=== PATIENT | female | born 1995 | race American Indian/Alaskan Native ===

== ENCOUNTER 2018-03-28 15:08 | Emergency (ER) | payer MEDICAID ==
--- NOTE | 2018-03-28 16:33 | Emergency Department Report ---
HPI - General Time Seen by Provider: 03/28/18 15:23 - HPI HPI: 22-year-old Afro-L[place] female presents to the emergency department with a complaint of vaginal bleeding, some pelvic discomfort and concern for miscarriage. The patient is about 8 weeks that was verified through an urgent care with an ultrasound and based on her last menstrual cycle. With this she is with 2 previous miscarriages. The patient had some mild vaginal spotting earlier in the day. She went home from work to get a pad and then return to work. However, the patient says that she started having a large amount of vaginal bleeding at that point with increased discomfort and EMS was called. She does not have an HATCHERY LABORER. ED Past Medical Hx - Social History Smoking Status: Never Smoker Substance Use Type: None - Medications Home Medications: Home Medications Medication Instructions Recorded Confirmed Last Taken Type No Known Home Medications [No 03/28/18 03/28/18 Unknown History Reported Home Medications] ED Review of Systems ROS: Stated complaint: POSS MISCARRIAGE Other details as noted in HPI Comment: All other systems reviewed and negative Constitutional: denies: chills, fever Eyes: denies: eye pain, eye discharge, vision change ENT: denies: ear pain, throat pain Respiratory: denies: cough, shortness of breath, wheezing Cardiovascular: denies: chest pain, palpitations Gastrointestinal: denies: vomiting, diarrhea Genitourinary: other (vaginal bleeding, pelvic discomfort). denies: dysuria, discharge Musculoskeletal: denies: back pain, arthralgia Skin: denies: rash, lesions Neurological: denies: headache, weakness Physical Exam - Physical Exam Physical Exam: GENERAL: The patient is well-developed well-nourished. HEENT: Normocephalic. Atraumatic. Patient has moist mucous membranes. EYES: Extraocular motions are intact. Pupils are equal and reactive to light bilaterally. NECK: Supple. Trachea is midline. CHEST/LUNGS: Clear to auscultation. There is no respiratory distress noted. HEART/CARDIOVASCULAR: Regular. There is no tachycardia. There is no obvious murmur. ABDOMEN: Abdomen is soft, nontender. Patient has normal bowel sounds. There is no abdominal distention. SKIN: Skin is warm and dry. NEURO: The patient is awake, alert, and oriented. The patient is cooperative. The patient has no focal neurologic deficits. The patient has normal speech. MUSCULOSKELETAL: There is no tenderness or deformity. There is no limitation range of motion. There is no evidence of acute injury. : There is mild to moderate blood seen coming from the vagina. There is also some products of conception seen coming out of the vagina. ED Medical Decision Making - Lab Data Result diagrams: 03/28/18 16:55 03/28/18 16:55 - Radiology Data Radiology results: report reviewed PROCEDURE: Transvaginal obstetrical ultrasound. TECHNIQUE: Real-time transvaginal sonography of the uterus, placenta, amniotic fluid, adnexa, and fetus was performed with image documentation. Measurements were obtained to determine age/size. M-mode Doppler was used to document heartbeat. CPT 88294 HISTORY: suspected miscarriage, heavy vaginal bleeding COMPARISON: None that are applicable. FINDINGS: The uterine myometrium appears homogeneous. There are no focal uterine masses. The endometrial echo complex measures 1.6 centimeters in the fundal region. There are no signs of an intrauterine gestational sac. Neither ovary is identified. There is a small amount of fluid in the left adnexal region. IMPRESSION: No evidence of an intrauterine . Transcribed By: [facility] Dictated By: RODNEY LUJAN MD Electronically Authenticated By: RODNEY LUJAN MD Signed Date/Time: 03/28/18 193 - Medical Decision Making Patient presents after having a large amount of vaginal bleeding and some pelvic pain with concern for miscarriage. Shortly after arrival, some products of conception were seen coming out of the vagina including some tissue and sac. A transvaginal ultrasound was done that now shows no evidence of any intrauterine . Labs are unremarkable. Vital signs stable throughout her ED course. At this point the patient says that her pain has completely resolved and the bleeding is now down to some spotting. I spoke with Gabby photolithographer for [facility], who agrees that the patient appears safe for discharge and outpatient follow-up in their office. Patient is A+ blood type and does not require the RhoGAM shot. - Differential Diagnosis spontaneous miscarriage, completed miscarriage, fibroids, Critical Care Time: No Critical care attestation.: If time is entered above; I have spent that time in minutes in the direct care of this critically ill patient, excluding procedure time. ED Disposition Clinical Impression: Miscarriage Disposition: DC-01 TO HOME OR SELFCARE Is pt being admited?: No Condition: Stable Instructions: Spontaneous Miscarriage (ED) Additional Instructions: Please follow up with an HATCHERY LABORER in the next few days. Return to the emergency Department with any worsening of your symptoms or any acute distress. Referrals: [facility] [Provider Group] - 2-3 Days Forms: Work/School Release Form(ED) Time of Disposition: 20:18
[2018-03-28 17:34] LABS: Basophils # (Auto) 0.1 K/mm3 (0.0-0.1); Basophils % (Auto) 0.8 % (0.0-1.8); Eosinophils # (Auto) 0.3 K/mm3 (0.0-0.4); Eosinophils % (Auto) 3.2 % (0.0-4.3); Hematocrit 38.1 % (30.3-42.9); Hemoglobin 12.8 gm/dl (10.1-14.3); Lymphocytes # (Auto) 2.2 K/mm3 (1.2-5.4); Lymphocytes % (Auto) 22.5 % (13.4-35.0); Mean Corpuscular HGB Conc 34 % (30-34); Mean Corpuscular Volume 91 fl (79-97); Monocytes % (Auto) 10.4 % (0.0-7.3); Platelet Count 198 K/mm3 (140-440); Red Blood Count 4.18 M/mm3 (3.65-5.03); Red Cell Distribution Width 13.9 % (13.2-15.2)
[2018-03-28 17:48] LABS: BUN/Creatinine Ratio 10; Blood Urea Nitrogen 5 mg/dL (7-17); Calcium 8.4 mg/dL (8.4-10.2); Hemolysis Index 24
[2018-03-28 18:14] LABS: INR 1.08 (0.87-1.13)
--- NOTE | 2018-03-28 19:26 | Ultrasound Report ---
FINAL REPORT PROCEDURE: Obstetrical ultrasound. TECHNIQUE: Real-time transabdominal sonography of the uterus, placenta, amniotic fluid, adnexa, and fetus was performed with image documentation. Measurements were obtained to determine age/size. M-mode Doppler was used to document heartbeat. CPT 24159 HISTORY: suspected miscarriage, heavy vaginal bleeding COMPARISON: None that are applicable. FINDINGS: The uterus measures 12.5 centimeters x 5.3 centimeters x 6.3 centimeters. The myometrium appears unif orm. The endometrium is thickened measuring 1.7 centimeters. There is no evidence of an intrauterine gestational sac. Neither ovary is identified. Incidental note is made of a small complex mass contigu ous with posterior wall of the bladder. This measures approximately 1.8 centimeters in maximum dimens ion. It may be within the wall of the bladder. It may be extrinsic to the bladder. The exact etiology is uncertain. A follow-up study of the bladder could be done for further evaluation. IMPRESSION: No evidence of an intrauterine . Indeterminate bladder wall mass.
[2018-03-28 19:27] VITALS: BP 109/69
--- NOTE | 2018-03-28 19:36 | Ultrasound Report ---
FINAL REPORT PROCEDURE: Transvaginal obstetrical ultrasound. TECHNIQUE: Real-time transvaginal sonography of the uterus, placenta, amniotic fluid, adnexa, and fe tus was performed with image documentation. Measurements were obtained to determine age/size. M -mode Doppler was used to document heartbeat. CPT 28218 HISTORY: suspected miscarriage, heavy vaginal bleeding COMPARISON: None that are applicable. FINDINGS: The uterine myometrium appears homogeneous. There are no focal uterine masses. The endometrial echo c omplex measures 1.6 centimeters in the fundal region. There are no signs of an intrauterine gestation al sac. Neither ovary is identified. There is a small amount of fluid in the left adnexal region. IMPRESSION: No evidence of an intrauterine .
== END 2018-03-28 21:02 | disposition home or self-care (01) ==
LOC: ED 15:08
DX: O03.9 Complete or unspecified spontaneous abortion without complication (principal); Z3A.08 8 weeks gestation of pregnancy
CPT/HCPCS: 36415; 76801; 76817; 80048; 84702; 85025; 85610; 85730; 86850; 86900; 86901; 88305

== ENCOUNTER 2018-10-11 16:32 | Emergency (ER) | payer SELFPAY ==
--- NOTE | 2018-10-11 17:00 | Emergency Department Report ---
Blank Doc - Documentation Documentation: This is a 23-year-old female that presents with n/v and is about 12 week pregn ant. This initial assessment/diagnostic orders/clinical plan/treatment(s) is/are subject to change based on patient's health status, clinical progression and re- assessment by fellow clinical providers in the ED. Further treatment and workup at subsequent clinical providers discretion. Patient/guardians urged not to elope from the ED as their condition may be serious if not clinically assessed a nd managed. Initial orders include: 1- Patient sent to [facility] for further evaluation and treatment 2- labs
[2018-10-11] MEDS ORDERED: ZOFRAN IV ONE ×2 (17:03→18:17)
[2018-10-11] MEDS ORDERED: NACL 0.9% 1000 ML 1,000 ML IV ONE (17:03)
--- NOTE | 2018-10-11 17:23 | Emergency Department Report ---
HPI - General Chief Complaint: Nausea/Vomiting/Diarrhea Time Seen by Provider: 10/11/18 16:59 - HPI HPI: 23 yo female had pos home preg test. come to er with N/V. No abd pain. no vag bleeding. no dysuria. no discharge. LMP 5-25 [id number] ED Past Medical Hx - Past Medical History Previous Medical History?: No Additional medical history: 3 miscarriage. last miscarriage 03/28/18 - Surgical History Past Surgical History?: No - Social History Smoking Status: Never Smoker Substance Use Type: None - Medications Home Medications: Home Medications Medication Instructions Recorded Confirmed Last Taken Type Ondansetron [Zofran Odt] 4 mg PO Q8HR PRN #10 tab.rapdis 10/11/18 Unknown Rx ED Review of Systems ROS: Stated complaint: /VOMITING/DEHYDRATED Other details as noted in HPI Comment: All other systems reviewed and negative Physical Exam - Physical Exam Vital Signs: Vital Signs 10/11/18 16:59 Temperature 97.9 F Pulse Rate 79 Respiratory 18 Rate Blood Pressure 119/80 O2 Sat by Pulse 100 Oximetry Physical Exam: alert and oriented s1s2 lungs cta abd snt no cva tenderness ED Course Vital Signs 10/11/18 16:59 Temperature 97.9 F Pulse Rate 79 Respiratory 18 Rate Blood Pressure 119/80 O2 Sat by Pulse 100 Oximetry - Reevaluation(s) Reevaluation #1: 10/11/18 18:21 ua not sent pt taking po ED Medical Decision Making - Lab Data Result diagrams: 10/11/18 17:21 10/11/18 17:21 - Medical Decision Making Lab Results 10/11/18 10/11/18 Range/Units 17:21 17:21 WBC 8.1 (4.5-11.0) K/mm3 RBC 4.72 (3.65-5.03) M/mm3 Hgb 14.4 H (10.1-14.3) gm/dl Hct 43.5 H (30.3-42.9) % MCV 92 (79-97) fl MCH 31 (28-32) pg MCHC 33 (30-34) % RDW 13.5 (13.2-15.2) % Plt Count 205 (140-440) K/mm3 Lymph % (Auto) 18.5 (13.4-35.0) % Haines % (Auto) 11.5 H (0.0-7.3) % Eos % (Auto) 1.5 (0.0-4.3) % Baso % (Auto) 0.8 (0.0-1.8) % Lymph # 1.5 (1.2-5.4) K/mm3 Haines # 0.9 H (0.0-0.8) K/mm3 Eos # 0.1 (0.0-0.4) K/mm3 Baso # 0.1 (0.0-0.1) K/mm3 Seg Neutrophils % 67.7 (40.0-70.0) % Seg Neutrophils # 5.5 (1.8-7.7) K/mm3 Sodium 142 (137-145) mmol/L Potassium 3.1 L (3.6-5.0) mmol/L Chloride 105.9 (98-107) mmol/L Carbon Dioxide 20 L (22-30) mmol/L Anion Gap 19 mmol/L BUN 6 L (7-17) mg/dL Creatinine 0.6 L (0.7-1.2) mg/dL Estimated GFR > 60 ml/min BUN/Creatinine Ratio 10 % Glucose 97 (65-100) mg/dL Calcium 8.9 (8.4-10.2) mg/dL Vital Signs 10/11/18 16:59 Temperature 97.9 F Pulse Rate 79 Respiratory 18 Rate Blood Pressure 119/80 O2 Sat by Pulse 100 Oximetry ns/zofran/tylenol given labs noted k replaced dc home with obgyn referral and instructions for follow up Critical care attestation.: If time is entered above; I have spent that time in minutes in the direct care of this critically ill patient, excluding procedure time. ED Disposition Clinical Impression: Nausea and vomiting during , Disposition: DC-01 TO HOME OR SELFCARE Is pt being admited?: No Does the pt Need Aspirin: No Condition: Stable Instructions: (ED) Additional Instructions: over the counter vitamin avoid drugs and alcohol; as well as tobacco tylenol for pain zofran for nausea follow up with obgyn OPAL referral below Referrals: [facility] STEPHEN [Primary Care Provider] - 3-5 Days FREDERIC MODI MD [Staff Physician] - 3-5 Days Time of Disposition: 18:18
[2018-10-11 17:32] LABS: Basophils # (Auto) 0.1 K/mm3 (0.0-0.1); Basophils % (Auto) 0.8 % (0.0-1.8); Eosinophils # (Auto) 0.1 K/mm3 (0.0-0.4); Eosinophils % (Auto) 1.5 % (0.0-4.3); Hematocrit 43.5 % (30.3-42.9); Hemoglobin 14.4 gm/dl (10.1-14.3); Lymphocytes # (Auto) 1.5 K/mm3 (1.2-5.4); Lymphocytes % (Auto) 18.5 % (13.4-35.0); Mean Corpuscular HGB Conc 33 % (30-34); Mean Corpuscular Volume 92 fl (79-97); Monocytes # (Auto) 0.9 K/mm3 (0.0-0.8); Monocytes % (Auto) 11.5 % (0.0-7.3); Platelet Count 205 K/mm3 (140-440); Red Blood Count 4.72 M/mm3 (3.65-5.03); Red Cell Distribution Width 13.5 % (13.2-15.2)
[2018-10-11 17:49] LABS: BUN/Creatinine Ratio 10; Blood Urea Nitrogen 6 mg/dL (7-17); Calcium 8.9 mg/dL (8.4-10.2); Hemolysis Index 7
[2018-10-11] MEDS ORDERED: TYLENOL PO ONE (18:17)
[2018-10-11] MEDS ORDERED: K-DUR PO ONE (18:18)
[2018-10-11 18:50] VITALS: BP 114/81
== END 2018-10-11 18:56 | disposition home or self-care (01) ==
LOC: ED 16:32
DX: O21.8 Other vomiting complicating pregnancy (principal); Z3A.12 12 weeks gestation of pregnancy
CPT/HCPCS: 36415; 80048; 85025; 96361; 96374; 96376; 99283; J2405; J7030

== ENCOUNTER 2021-10-11 02:24 | Emergency (ER) | payer MEDICAID ==
--- NOTE | 2021-10-11 05:42 | XRay Report ---
Right hand, 3 views HISTORY: Injury COMPARISON: None FINDINGS: There is a minimally displaced fracture involving the dorsal aspect of the right fifth metacarpal hea d. No additional fracture. No joint malalignment. Signer Name: Bhavin Duron MD Signed: 10/11/2021 5:37 AM Workstation Name: [id number]
[2021-10-11] MEDS ORDERED: IBUPROFEN 800 MG TAB PO ONE (07:36)
--- NOTE | 2021-10-11 08:36 | Emergency Department Report ---
ED Upper Extremity Inj HPI - General Chief Complaint: Extremity Injury, Upper Stated Complaint: FALL/RT HAND INJURY Time Seen by Provider: 10/11/21 07:34 Source: patient Mode of arrival: Ambulatory Limitations: No Limitations - History of Present Illness Initial Comments: This is a 26-year-old female nontoxic, well nourished in appearance, no acute signs of distress presents to the ED with c/o of right hand pain 1 day. Patient stated that a she hit her hand against the floor. Patient denies any other injuries or trauma. Patient denies any numbness, tingling, fever, chills, nausea, vomiting, chest pain, shortness of breath, headache, stiff neck. Patient denies any joint swelling or joint redness. Patient decreased range of motion but has some pain. Patient denies any allergies or significant past medical history. MD Complaint: Injury to:: right, hand -: days(s) Other Extremity Injury: Hand: Right Severity scale (0 -10): 8 Improves With: immobilization Worsens With: movement of extremity Associated Symptoms: denies other symptoms. denies: weakness, numbness, neck pain, suspects foreign body, nausea/vomiting, heard/felt popping sensat - Related Data Previous Rx's Medication Instructions Recorded Last Taken Type Ondansetron [Zofran Odt] 4 mg PO Q8HR PRN #10 tab.rapdis 10/11/18 Unknown Rx Naproxen 500 mg PO Q8H PRN #20 tab 10/11/21 Unknown Rx Allergies Allergy/AdvReac Type Severity Reaction Status Date / Time No Known Allergies Allergy Verified 03/07/15 22:26 ED Review of Systems ROS: Stated complaint: FALL/RT HAND INJURY Other details as noted in HPI Comment: All other systems reviewed and negative Constitutional: denies: chills, fever Eyes: denies: eye pain, eye discharge, vision change ENT: denies: ear pain, throat pain Respiratory: denies: cough, shortness of breath, wheezing Cardiovascular: denies: chest pain, palpitations Endocrine: no symptoms reported Gastrointestinal: denies: abdominal pain, nausea, diarrhea Genitourinary: denies: urgency, dysuria, discharge Musculoskeletal: denies: back pain, joint swelling, arthralgia Skin: denies: rash, lesions Neurological: denies: headache, weakness, paresthesias Psychiatric: denies: anxiety, depression Hematological/Lymphatic: denies: easy bleeding, easy bruising ED Past Medical Hx - Past Medical History Previous Medical History?: No Additional medical history: 3 miscarriage. last miscarriage 03/28/18 - Surgical History Past Surgical History?: No - Social History Smoking Status: Never Smoker Substance Use Type: Alcohol - Medications Home Medications: Home Medications Medication Instructions Recorded Confirmed Last Taken Type Ondansetron [Zofran Odt] 4 mg PO Q8HR PRN #10 tab.rapdis 10/11/18 Unknown Rx Naproxen 500 mg PO Q8H PRN #20 tab 10/11/21 Unknown Rx ED Physical Exam - General Limitations: No Limitations General appearance: alert, in no apparent distress - Head Head exam: Present: atraumatic, normocephalic - Eye Eye exam: Present: normal appearance - Neck Neck exam: Present: normal inspection, full ROM. Absent: lymphadenopathy - Respiratory Respiratory exam: Absent: respiratory distress - Cardiovascular Cardiovascular Exam: Present: regular rate - Extremities Exam Extremities exam: Present: normal inspection, full ROM, tenderness, normal capillary refill. Absent: joint swelling - Expanded Upper Extremity Exam Right General: Present: normal inspection Shoulder Exam: Present: normal inspection, full ROM. Absent: tenderness, swelling Upper Arm exam: Present: normal inspection, full ROM. Absent: tenderness Elbow exam: Present: normal inspection, full ROM. Absent: tenderness, swelling Forearm Wrist exam: Present: normal inspection, full ROM. Absent: tenderness, swelling, abrasion, laceration, ecchymosis, deformity, crepidus, dislocation, er ythema, tenderness over anatomical snuff box, pain with axial thumb loading Hand Wrist exam: Present: normal inspection, full ROM, tenderness, swelling, ecchymosis. Absent: abrasion, laceration, deformity, crepidus, dislocation, erythema, amputation, nail avulsion, subungual hematoma Hand L/R Back: 1 - pain here Vascular: Present: normal capillary refill. Absent: vascular compromise (Neurovascular within normal limits) - Back Exam Back exam: Present: normal inspection, full ROM. Absent: tenderness, paraspinal tenderness, vertebral tenderness - Neurological Exam Neurological exam: Present: alert, oriented X3, normal gait - Psychiatric Psychiatric exam: Present: normal affect, normal mood - Skin Skin exam: Present: warm, dry, intact, normal color. Absent: rash ED Course Vital Signs 10/11/21 10/11/21 05:10 07:41 Temperature 97.7 F 98.1 F Pulse Rate 73 68 Respiratory 18 18 Rate Blood Pressure 133/86 122/82 Blood Pressure 122/82 [Right] O2 Sat by Pulse 98 99 Oximetry - Reevaluation(s) Reevaluation #1: 10/11/21 08:37 Patient is speaking in full sentences with no signs of distress noted. ED Medical Decision Making - Radiology Data [facility] [address] [place] [address] XRay Report Signed Patient: CAROLINA SALAMANCA MR #: [id number] : 1995 Acct:[id number] Age/Sex: 26 / F ADM Date: 10/11/21 Loc: ED Attending Dr: Ordering Physician: ED MD YELITZA Date of Service: 10/11/21 Procedure(s): XR hand 3+V RT Accession Number(s): [id number] cc: ED MD YELITZA Fluoro Time In Minutes: Right hand, 3 views HISTORY: Injury COMPARISON: None FINDINGS: There is a minimally displaced fracture involving the dorsal aspect of the right fifth metacarpal head. No additional fracture. No joint malalignment. Signer Name: Agapito Duron MD Signed: 10/11/2021 5:37 AM Workstation Name: [id number] Transcribed By: [facility] Dictated By: AGAPITO DURON MD Electronically Authenticated By: AGAPITO DURON MD Signed Date/Time: 10/11/21 0537 DD/ 0534 TD/TT: - Medical Decision Making This is a 26-year-old male that presents with right fifth metacarpal fracture. Patient is stable and was examined by me. Patient referred to see orthopedic in 3 to 5 days. X-ray has been obtained and dictated by the radiologist. Patient is notified of the x-ray report with noted by the patient. Patient does have normal gait with no tenderness and no joint swelling. No ecchymosis. no joint redness or swelling. Not warm to touch. No signs of cellulites present. Patient received a ulnar gutter splint to right hand. Post splint assessment: neurovasular intact; normal cap refill <2 second; normal sensation; denies decreaed sensation; normal ROM of digits.. Patient was instructed to RICE therapy. Patient received Motrin for pain. Patient is discharged with Motrin. At time of discharge, the patient does not seem toxic or ill in appearance. No acute signs of distress noted. Patient agrees to discharge treatment plan of care. No further questions noted by the patient. Critical care attestation.: If time is entered above; I have spent that time in minutes in the direct care of this critically ill patient, excluding procedure time. ED Disposition Clinical Impression: Fracture of fifth metacarpal bone of right hand Qualifiers: Encounter type: initial encounter Fracture type: closed Metacarpal location: other portion of metacarpal Fracture alignment: displaced Qualified Code(s): S62.396A - Other fracture of fifth metacarpal bone, right hand, initial encounter for closed fracture Disposition: 01 HOME / SELF CARE / HOMELESS Is pt being admited?: No Does the pt Need Aspirin: No Condition: Stable Instructions: Cast or Splint Care, Adult, [id number], Metacarpal Fracture Additional Instructions: Follow-up with a orthopedic doctor in 3-5 days or if symptoms worsen and cont inue return to emergency room as soon as possible. No physical activity that extremity until cleared by orthopedic doctor Prescriptions: Naproxen 500 mg PO Q8H PRN #20 tab PRN Reason: Pain , Severe (7-10) Referrals: PRIMARY MD MAYCOL [Referring] - 3-5 Days ADRIAN MATHEWS MD [Staff Physician] - 3-5 Days Forms: Work/School Release Form(ED) Time of Disposition: 08:40
[2021-10-11 09:59] VITALS: BP 134/78
== END 2021-10-11 09:58 | disposition home or self-care (01) ==
LOC: ED 02:24
DX: S62.396A Other fracture of fifth metacarpal bone, right hand, initial encounter for closed fracture (principal); Z79.899 Other long term (current) drug therapy; Z72.89 Other problems related to lifestyle; W22.8XXA Striking against or struck by other objects, initial encounter; Y93.89 Activity, other specified; Y92.89 Other specified places as the place of occurrence of the external cause; Y99.8 Other external cause status
CPT/HCPCS: 99283; 99284